=== PATIENT | male | born 1950 | race Caucasian/White ===

== ENCOUNTER 2017-03-29 06:57 | Inpatient (IN) | payer MEDICARE, OTHER ==
[~2017-03-29 06:57] MED LIST: ADULT LOW DOSE81 M1 PO; ALLOPURINOL100 M1 PO; ASPIRIN325 M3 PO; CENTRUM SILVER1 EAC3 PO; COLCRYS0.6 M1 PO; CPAP; FISH OIL PO; HEARTBURN RELIE10 M1 PO; MOBIC15 M2 PO; OMEPRAZOLE20 M3 PO; PEPCID AC10 M1 PO; ROXICODONE5 M2 PO; SENOKOT-S TABL1 EACH PO; TUMS PO; TYLENOL325 M2 PO; ULTRAM50 M1 PO
[2017-03-29 08:30] LABS: BASO % 1.1 % (0-2); EOS % 2.8 % (0-7); EOSINOPHIL ABSOLUTE COUNT 0.1 tho/cmm (0.0-0.7); HCT-HEMATOCRIT 45.7 % (36.0-53.5); HGB-HEMOGLOBIN 16.5 gm/dl (13.5-17.0); IMMATURE GRANULOCYTES ABSOLUTE 0.01 tho/cmm (0-0.03); IMMATURE GRANULOCYTES PERCENT 0.3 % (0-0.3); LYMPH % 32.5 % (20-45); LYMPH ABSOLUTE COUNT 1.2 tho/cmm (0.8-4.5); MCH (MEAN CORPUSCULAR HGB) 32.1 pg (28.0-32.0); MCHC MEAN CORPUSCULAR HGB CONC 36.1 % (32.0-36.0); MCV (MEAN CELL VOLUME) 88.9 fl (82.0-96.0); MEAN PLATELET VOLUME 8.6 cmc (9.4-12.4); MONO % 5.2 % (0-12); MONOCYTE ABSOLUTE COUNT 0.2 tho/cmm (0.0-1.2); NEUTROPHIL ABSOLUTE COUNT 2.1 tho/cmm (1.6-8.0); NEUTROPHIL-AUTOMATED 2.1 tho/cmm (1.6-8.0); NEUTROPHILS % 58.1 % (40-80); PLATELET COUNT 149 tho/cmm (150-450); RED BLOOD COUNT 5.14 mil/cmm (4.40-5.70); RED CELL DISTRIBUTION WIDTH 12.7 % (12.4-16.4); WHITE BLOOD COUNT 3.6 tho/cmm (4.0-10.0)
[2017-03-29 08:34] LABS: PROTHROMBIN TIME 12.1 SECONDS (9.0-13.6)
[2017-03-29 08:41] LABS: ANION GAP 13 mmol/L (0-20); BLOOD UREA NITROGEN 15 mg/dl (6-24); CARBON DIOXIDE-VENOUS 24 mmol/L (22-32); CHLORIDE 109 mmol/l (96-110); CREATININE 1.07 mg/dl (0.60-1.30); GLUCOSE 111 mg/dL (70-110); SODIUM 142 mmol/L (135-145); eGFR VALUE FOR BLACK 83 mL/Min
[2017-03-30 04:33] LABS: BASO % 0.1 % (0-2); HCT-HEMATOCRIT 39.2 % (36.0-53.5); HGB-HEMOGLOBIN 14.2 gm/dl (13.5-17.0); IMMATURE GRANULOCYTES ABSOLUTE 0.03 tho/cmm (0-0.03); IMMATURE GRANULOCYTES PERCENT 0.3 % (0-0.3); LYMPH % 9.8 % (20-45); LYMPH ABSOLUTE COUNT 1.1 tho/cmm (0.8-4.5); MCH (MEAN CORPUSCULAR HGB) 31.7 pg (28.0-32.0); MCHC MEAN CORPUSCULAR HGB CONC 36.2 % (32.0-36.0); MCV (MEAN CELL VOLUME) 87.5 fl (82.0-96.0); MEAN PLATELET VOLUME 8.7 cmc (9.4-12.4); MONO % 7.1 % (0-12); MONOCYTE ABSOLUTE COUNT 0.8 tho/cmm (0.0-1.2); NEUTROPHIL ABSOLUTE COUNT 8.9 tho/cmm (1.6-8.0); NEUTROPHIL-AUTOMATED 8.9 tho/cmm (1.6-8.0); NEUTROPHILS % 82.7 % (40-80); PLATELET COUNT 161 tho/cmm (150-450); RED BLOOD COUNT 4.48 mil/cmm (4.40-5.70); RED CELL DISTRIBUTION WIDTH 12.4 % (12.4-16.4)
[2017-03-30 04:34] LABS: WHITE BLOOD COUNT 10.8 tho/cmm (4.0-10.0)
[2017-03-30] MEDS ORDERED: ASPIRIN81 M1 PO (09:29)
[2017-03-30] MEDS ORDERED: ROXICODONE5 M2 PO (09:33)
[2017-03-30] MEDS ORDERED: ULTRAM50 M1 (09:35)
[2017-03-30] MEDS ORDERED: TYLENOL325 M2 PO (09:36)
[2017-03-30] MEDS ORDERED: SENOKOT8.6 M1 PO (09:39)
[2017-03-30] MEDS ORDERED: MOBIC7.5 M2 PO (09:40)
== END 2017-03-30 12:10 | DRG 470 ==
LOC: SHSA 06:57 → ORE 09:59 → PACU 11:44 → 5EA 12:50
PROVIDERS: ADMIT Orthopaedic Surgery Foot and Ankle Surgery
PROC: 0SR904A Replacement of Right Hip Joint with Ceramic on Polyethylene Synthetic Substitute, Uncemented, Open Approach (ICD-10-PCS; principal; 2017-03-29)
DX: M16.11 Unilateral primary osteoarthritis, right hip (principal); Z96.642 Presence of left artificial hip joint; M10.9 Gout, unspecified; G47.33 Obstructive sleep apnea (adult) (pediatric); Z87.891 Personal history of nicotine dependence; Z79.82 Long term (current) use of aspirin; Z79.899 Other long term (current) drug therapy
CPT/HCPCS: C1776; J0171; J0690; J1885; J2270; J2795